=== PATIENT | female | born 1945 | race Caucasian/White ===

== ENCOUNTER 2017-06-26 18:25 | Emergency (ER) | payer BC ==
[~2017-06-26] VITALS: Ht 154.9 cm; Wt 75.3 kg
[~2017-06-26 18:25] MED LIST: ASPIR 8181 M1 PO; B COMPLETE1 EACH PO; CALCIUM +D & M1 EACH PO; CIPRO500 MG PO; FLAGYL500 MG PO; HYDROCHLOROTHIA25 MG PO; LISINOPRIL40 MG PO; LOSARTAN POTASS50 MG PO; NORCO 5/3251 TABLET PO; PERCOCET 5/31 TABLET PO; PRAVACHOL40 MG PO; PRILOSEC40 MG PO; ZOFRAN ODT8 MG PO
[2017-06-26 22:46] VITALS: BP 143/78
== END 2017-06-26 22:47 | disposition home or self-care (01) ==
LOC: EME 18:25
DX: S52.612A Displaced fracture of left ulna styloid process, initial encounter for closed fracture (principal); S01.81XA Laceration without foreign body of other part of head, initial encounter; S60.222A Contusion of left hand, initial encounter; W01.0XXA Fall on same level from slipping, tripping and stumbling without subsequent striking against object, initial encounter; Z79.82 Long term (current) use of aspirin; E78.5 Hyperlipidemia, unspecified; I10 Essential (primary) hypertension; K21.9 Gastro-esophageal reflux disease without esophagitis; Z88.2 Allergy status to sulfonamides
CPT/HCPCS: 70450; 73110; 73130; 99281; 99283

== ENCOUNTER → 2017-07-19 | Outpatient (CLI) | payer BC | END | disposition home or self-care (01) | LOC: CDC 09:37 | DX: Z01.810 Encounter for preprocedural cardiovascular examination (principal); S63.055A Dislocation of other carpometacarpal joint of left hand, initial encounter; R94.31 Abnormal electrocardiogram [ECG] [EKG] | CPT/HCPCS: 93000 ==